=== PATIENT | male | born 1985 | race African-American/Black ===

== ENCOUNTER 2018-04-09 04:36 | Emergency (ER) | payer SELFPAY ==
[~2018-04-09] VITALS: Ht 177.8 cm; Wt 82.0 kg
[2018-04-09] MEDS ORDERED: SODIUM CHLORIDE 0.9% 1,000 ML IV ONE (05:02)
[2018-04-09 05:36] LABS: BASOPHILS % 0.6 % (0.0-2.0); EOSINOPHILS % 0.7 % (0.0-5.0); HEMATOCRIT. 45.6 % (42.0-52.0); HEMOGLOBIN. 15.8 g/dL (14.0-18.0); LYMPHOCYTES % 14.7 % (20.0-50.0); MEAN CORPUSCULAR HEMOGLOBIN 30.3 pg (28.0-32.0); MEAN CORPUSCULAR VOLUME 87.3 fL (80.0-94.0); MONOCYTES % 11.2 % (2.0-8.0); NEUTROPHILS % 72.8 % (40.0-76.0); RED BLOOD CELL COUNT 5.23 mill/uL (4.7-6.1)
[2018-04-09 05:37] LABS: CLARITY URINE CLEAR (CLEAR); COLOR URINE YELLOW (YELLOW); KETONES URINE 2+ (NEGATIVE); LEUKOCYTE ESTERASE URINE NEGATIVE (NEGATIVE); NITRITE URINE NEGATIVE (NEGATIVE); OCCULT BLOOD URINE 2+ (NEGATIVE); PH URINE 6.5 (4.5-8.0); PROTEIN URINE NEGATIVE (NEGATIVE); SPECIFIC GRAVITY URINE 1.022 (1.005-1.030)
[2018-04-09 05:47] LABS: CHLORIDE 104 mEq/L (98-107)
[2018-04-09 05:49] LABS: INR 1.1; PARTIAL THROMBOPLASTIN TIME 25.7 sec (23.4-31.0); PROTHROMBIN TIME 10.8 sec (9.1-11.1)
[2018-04-09 05:51] LABS: ETHANOL BLOOD < 10 mg/dL
[2018-04-09 05:55] LABS: CREATINE KINASE 159 IU/L (39-308)
[2018-04-09 05:59] LABS: *AMPHETAMINES SCREEN URINE NEGATIVE (NEGATIVE); *BARBITURATES SCREEN URINE NEGATIVE (NEGATIVE); *BENZODIAZEPINES SCREEN URINE NEGATIVE (NEGATIVE)
[2018-04-09 06:00] LABS: *COCAINE SCREEN URINE PRESUMTIVE POSITIVE (NEGATIVE); CANNABINOID URINE SCREEN PRESUMTIVE POSITIVE (NEGATIVE); METHADONE URINE SCREEN NEGATIVE (NEGATIVE); OPIATES URINE SCREEN NEGATIVE (NEGATIVE); PHENCYCLIDINE URINE SCREEN NEGATIVE (NEGATIVE)
[2018-04-09 06:04] LABS: PLATELET 217 x1000/uL (130-400)
[2018-04-09 06:05] LABS: MEAN PLATELET VOLUME 9.2 fl (7.4-10.4)
[2018-04-09 07:34] VITALS: BP 126/84
== END 2018-04-09 07:47 | disposition home or self-care (01) ==
LOC: ER 04:36
DX: F14.10 Cocaine abuse, uncomplicated (principal); F12.10 Cannabis abuse, uncomplicated; F17.210 Nicotine dependence, cigarettes, uncomplicated; R03.0 Elevated blood-pressure reading, without diagnosis of hypertension
CPT/HCPCS: 36415; 71045; 80053; 80305; 80307; 80329; 81003; 82550; 82962; 83605; 84443; 84484; 85025; 85610; 85730; 93005; 96360; 96361; 99285; G0482; J7030